=== PATIENT | female | born 1975 | race Two or more races ===

== ENCOUNTER 2022-07-19 18:31 | Emergency (ER) | payer BC ==
[~2022-07-19] VITALS: Ht 172.7 cm; Wt 86.3 kg
[2022-07-20 04:00] VITALS: BP 124/80
[2022-07-20] MEDS ORDERED: HYDR-4798 PO ×2 (05:36→05:38)
== END 2022-07-20 05:57 | disposition home or self-care (01) ==
LOC: ER 18:31
DX: R51.9 Headache, unspecified (principal)
CPT/HCPCS: 70450; 70496; 70498

== ENCOUNTER 2025-05-13 09:26 | Emergency (ER) | payer BC ==
[~2025-05-13] VITALS: Ht 172.7 cm; Wt 80.7 kg
[~2025-05-13 09:26] MED LIST: HYDR-4798 PO
[2025-05-13 10:15] VITALS: PULSE 74; RESP 20; O2SAT 98
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
[2025-05-13] MEDS: TETANUS-DIPTH-ACEL PERTUSSIS 0.5ML SYR Tdap IM ONE (10:45)
--- NOTE | 2025-05-13 11:02 | DVH ---
EXAM: XR Left 4th 4th Fingers, 2 or More Views CLINICAL INDICATION: trauma TECHNIQUE: Frontal, lateral and oblique views of the 4th fingers of the left hand. COMPARISON: No relevant prior studies available. FINDINGS: BONES/JOINTS: Comminuted mildly displaced fracture of the distal 4th phalanx. No dislocation. SOFT TISSUES: Soft tissue swelling. No radiopaque foreign body. OTHER FINDINGS: Comparison None. IMPRESSION: Comminuted mildly displaced fracture of the distal 4th phalanx. HS:Y
[2025-05-13] MEDS: ceFAZolin 1GM/50ML 50 ML IV ONE (11:11)
[2025-05-13 11:52] VITALS: BP 120/75; PULSE 69; RESP 12; TEMP 98.5; O2SAT 97
== END 2025-05-13 12:11 | disposition short-term general hospital (02) ==
LOC: ER 09:26
DX: S69.90XA Unspecified injury of unspecified wrist, hand and finger(s), initial encounter (principal); X58.XXXA Exposure to other specified factors, initial encounter; Y93.89 Activity, other specified; Y92.89 Other specified places as the place of occurrence of the external cause; Y99.8 Other external cause status
CPT/HCPCS: 73120; 90471; 90715; 96365; 99285; J0690; 16000